=== PATIENT | female | born 1935 ===

== ENCOUNTER 2017-06-12 08:46 | Emergency (ER) | payer MEDICARE, BC ==
[2017-06-12 08:59] VITALS: BMI 24.7
[2017-06-12 09:03] VITALS: RESP 18; TEMP 98; O2SAT 97
--- NOTE | 2017-06-12 09:50 | C.PDOC ---
History Of Present Illness 82 y/o female presents to ED with complaints of left sided low back pain radiating to leg and bottom of foot for 1 week. Patient reports she got up and suddenly felt pain, taken Tramadol for chronic arthritic pain but came to ED for further evaluation. Patient denies fever, abdominal pain, bowel/bladder incontinence, numbness or any other complaints at this time. Chief Complaint (Nursing): Back Pain History Per: Patient History/Exam Limitations: no limitations Onset/Duration Of Symptoms: Days Current Symptoms Are (Timing): Still Present Quality Of Discomfort: "Pain" Past Medical History Reviewed: Historical Data, Nursing Documentation, Vital Signs Vital Signs: Last Vital Signs Temp 98.0 F 06/12/17 08:59 Pulse 61 06/12/17 12:09 Resp 18 06/12/17 12:09 BP 134/56 L 06/12/17 12:09 Pulse Ox 97 06/12/17 13:08 - Medical History PMH: Diabetes, Gall Bladder Disease (GALL STONE), HTN, Hypercholesterolemia, Malignancy (LUNG CANCER) Surgical History: No Surg Hx - [facility] Procedures ENDOSC POLYPECTOMY OF LG INTEST (01/07/05) Family History: States: No Known Family Hx - Social History Hx Tobacco Use: No Hx Alcohol Use: No Hx Substance Use: No - Immunization History Hx Tetanus Toxoid Vaccination: No Hx Influenza Vaccination: Yes Hx Pneumococcal Vaccination: Yes Review Of Systems Gastrointestinal: Negative for: Nausea, Vomiting, Abdominal Pain Genitourinary: Negative for: Incontinence Musculoskeletal: Positive for: Back Pain, Leg Pain Skin: Negative for: Rash Neurological: Negative for: Numbness Physical Exam - Physical Exam Appears: Non-toxic, No Acute Distress Skin: Warm, Dry, No Rash Head: Atraumatic, Normacephalic Oral Mucosa: Moist Neck: Normal ROM, Supple Cardiovascular: Rhythm Regular Respiratory: Normal Breath Sounds, No Rales, No Rhonchi, No Wheezing Gastrointestinal/Abdominal: Soft, No Tenderness, No Guarding, No Rebound Back: No CVA Tenderness, Other (tenderness to left sacral area with palpation radiating down to back of left thigh and left plantar of left foot ) Extremity: Normal ROM, Capillary Refill (<2 seconds) Pulses: Left Dorsalis Pedis: Normal, Right Dorsalis Pedis: Normal Neurological/Psych: Oriented x3, Normal Motor, Normal Sensation Gait: Steady ED Course And Treatment O2 Sat by Pulse Oximetry: 97 (RA) Pulse Ox Interpretation: Normal - CT Scan/US Lumbar Spine CT Other Rad Studies (CT/US): Read By Radiologist, Radiology Report Reviewed CT/US Interpretation: FINDINGS: VERTEBRAE: Current study reveals no acute compression fractures no retropulsed fragments. Vertebral height and normal stature. Vertebral bodies and facets normally aligned. There are no suspicious lytic or blastic lesions identified. . DISCS/SPINAL CANAL/NEURAL FORAMINA: Mild multilevel degenerative spondylosis. At the L5-S1 level, there is minor posterior disc space narrowing with small broad-based bulge of the posterior annulus that extends slightly into proximal inferior margins both exit foramina. The facets are mildly hypertrophic right greater than left. Central canal appears adequate. Exit foramina are marginal to minimally narrowed. At the L4-L5 level, there is relatively adequate disc height. Central and bilateral broad-based disc herniation larger on the left than the right flattens the ventral surface of thecal sac and results bilateral lateral recess stenosis and mild canal narrowing. Facet joints also mildly hypertrophic. . At the L3-L4 level, there is minor posterior disc space narrowing. Small central and bilateral disc herniation also results in compression of the thecal sac with bilateral lateral recess and central canal stenosis. Exit foramina are marginal to mildly narrowed. The remaining levels exhibit minor posterior disc space narrowing. No disc herniation nor significant disc bulge. Central canal and exit foramina appear adequate. PARASPINAL SOFT TISSUES: Unremarkable. OTHER FINDINGS: None. IMPRESSION: No acute compression fractures nor retropulsed fragments. No evidence of a suspicious lytic or blastic lesions identified. Mild multilevel degenerative spondylosis most notably affecting the L3-L4 and L4-L5 levels as detailed above Medical Decision Making Medical Decision Making: Impression: Sciatica Plan: Toradol, Muscle relaxant Disposition - Disposition Referrals: [facility] [Outside] Disposition: HOME/ ROUTINE Disposition Time: 13:42 Condition: FAIR Prescriptions: Indomethacin [Indocin] 25 mg PO BID #28 cap Instructions: Sciatica, Degenerative Disc Disease (DC) Forms: panpan (Maltese) Print Language: ALGERIAN - Clinical Impression Clinical Impression: Sciatica - Scribe Statement The provider has reviewed the documentation as recorded by the Bismarkibryan Christine All medical record entries made by the Scribryan were at my direction and personally dictated by me. I have reviewed the chart and agree that the record accurately reflects my personal performance of the history, physical exam, medical decision making, and the department course for this patient. I have also personally directed, reviewed, and agree with the discharge instructions and disposition.
[2017-06-12 12:09] VITALS: BP 134/56; PULSE 61
--- NOTE | 2017-06-12 13:01 | CT ---
PROCEDURE: CT Lumbar Spine without contrast HISTORY: pain to sacral area,breast ca COMPARISON: Comparison made with CT scan abdomen pelvis 07/07/2014 TECHNIQUE: Axial computed tomography images were obtained of the lumbar spine without the use of intravenous contrast. Coronal and sagittal reformatted images were created and reviewed. Radiation dose: Total exam DLP = 516.92 mGy-cm. This CT exam was performed using one or more of the following dose reduction techniques: Automated exposure control, adjustment of the mA and/or kV according to patient size, and/or use of iterative reconstruction technique. FINDINGS: VERTEBRAE: Current study reveals no acute compression fractures no retropulsed fragments. Vertebral height and normal stature. Vertebral bodies and facets normally aligned. There are no suspicious lytic or blastic lesions identified. DISCS/SPINAL CANAL/NEURAL FORAMINA: Mild multilevel degenerative spondylosis. At the L5-S1 level, there is minor posterior disc space narrowing with small broad-based bulge of the posterior annulus that extends slightly into proximal inferior margins both exit foramina. The facets are mildly hypertrophic right greater than left. Central canal appears adequate. Exit foramina are marginal to minimally narrowed. At the L4-L5 level, there is relatively adequate disc height. Central and bilateral broad-based disc herniation larger on the left than the right flattens the ventral surface of thecal sac and results bilateral lateral recess stenosis and mild canal narrowing. Facet joints also mildly hypertrophic. . At the L3-L4 level, there is minor posterior disc space narrowing. Small central and bilateral disc herniation also results in compression of the thecal sac with bilateral lateral recess and central canal stenosis. Exit foramina are marginal to mildly narrowed. The remaining levels exhibit minor posterior disc space narrowing. No disc herniation nor significant disc bulge. Central canal and exit foramina appear adequate. PARASPINAL SOFT TISSUES: Unremarkable. OTHER FINDINGS: None. IMPRESSION: No acute compression fractures nor retropulsed fragments. No evidence of a suspicious lytic or blastic lesions identified. Mild multilevel degenerative spondylosis most notably affecting the L3-L4 and L4-L5 levels as detailed above
== END 2017-06-12 13:20 | disposition home or self-care (01) ==
LOC: C.ER 08:46
DX: M54.30 Sciatica, unspecified side (principal)
CPT/HCPCS: 72131; 96372; 99285; J1885